=== PATIENT | female | born 1990 | race Caucasian/White ===

== ENCOUNTER 2017-02-06 00:14 | Emergency (ER) | payer OTHER ==
[~2017-02-06] VITALS: Ht 170.2 cm; Wt 63.1 kg
[2017-02-06 00:19] VITALS: Ht 170.2 cm; Wt 63.1 kg
--- NOTE | 2017-02-06 02:58 | ERD ---
ER Documentation Chief Complaint Chief Complaint left foot sweling. redness, warm to touch HPI This 26 yr female left foot red and hot, patient reports IV drug use heroin and cocaine, reports vancomycin allergy. Denies nausea, vomiting, fever, chills ROS All systems reviewed and are negative except as per history of present illness. Allergies Allergies: Coded Allergies: vancomycin (Verified Allergy, Unknown, 02/06/17) PMhx/Soc Medical and Surgical Hx: pt denies Medical Hx, pt denies Surgical Hx Hx Alcohol Use: No Hx Substance Use: No Hx Tobacco Use: No Smoking Status: Never smoker Physical Exam Vitals Vital Signs Date Time Temp Pulse Resp B/P Pulse Ox O2 Delivery O2 Flow Rate FiO2 02/06/17 00:19 98.2 120 20 129/80 100 Vitals stable, triage notes reviewed Physical Exam Const: Nourished, dirty, 26-year-old female no acute distress Head: Eyes: ENT: Neck: Cardio: Abd: Skin: Patient skin and nails are dirty, left dorsal foot and ankle, outer lateral aspect bright red, edematous, tender to palpation Back: Ext: Lower Extremity left foot: Skin: Bright red erythremic skin, soft tissue swelling, no laceration, pustule, or ulcer is visualized Compartments: Soft Motor: Full active range of motion hip/knee/ankle/foot Sensation: Intact to light touch inferior, superior and lateral surfaces surfaces.] Bones: Nontender pelvis/knee/proximal tibia/ malleoli/foot Joints: No effusion or laxity Pulses/Perfusion: 2+ DP, Capillary refill < 2 seconds Neur: Awake and alert Psych: Normal Mood and Affect Result Diagram: 02/06/17 0330 02/06/17 0330 Results 24 hrs Laboratory Tests Test 02/06/17 03:30 White Blood Count 10.010^3/ul Red Blood Count 4.3110^6/ul Hemoglobin 11.9g/dl Hematocrit 36.9% Mean Corpuscular Volume 85.6fl Mean Corpuscular Hemoglobin 27.6pg Mean Corpuscular Hemoglobin Concent 32.2g/dl Red Cell Distribution Width 12.6% Platelet Count 70378^3/UL Mean Platelet Volume 9.7fl Neutrophils % 64.2% Lymphocytes % 22.7% Monocytes % 9.0% Eosinophils % 3.3% Basophils % 0.5% Nucleated Red Blood Cells % 0.0/100WBC Neutrophils # 6.410^3/ul Lymphocytes # 2.310^3/ul Monocytes # 0.910^3/ul Eosinophils # 0.310^3/ul Basophils # 0.110^3/ul Nucleated Red Blood Cells # 0.010^3/ul Urine Color JOSH Urine Clarity CLOUDY Urine pH 5.0 Urine Specific [place] 1.031 Urine Ketones TRACEmg/dL Urine Nitrite NEGATIVEmg/dL Urine Bilirubin NEGATIVEmg/dL Urine Urobilinogen 1+mg/dL Urine Leukocyte Esterase 1+Jennifer/ul Urine Microscopic RBC 3/HPF Urine Microscopic WBC 12/HPF Urine Squamous Epithelial Cells FEW/HPF Urine Calcium Oxalate Crystals MANY/HPF Urine Bacteria FEW/HPF Urine Mucus MANY/HPF Urine Hemoglobin NEGATIVEmg/dL Urine Glucose NEGATIVEmg/dL Urine Total Protein 1+mg/dl Urine Test Pending Sodium Level 144mmol/L Potassium Level 4.3mmol/L Chloride Level 101mmol/L Carbon Dioxide Level 28mmol/L Anion Gap 19 Blood Urea Nitrogen 10mg/dl Creatinine 0.65mg/dl Glucose Level 91mg/dl Calcium Level 9.6mg/dl Total Bilirubin 0.3mg/dl Direct Bilirubin 0.00mg/dl Indirect Bilirubin 0.3mg/dl Aspartate Amino Transf (AST/SGOT) 19IU/L Alanine Aminotransferase (ALT/SGPT) 32IU/L Alkaline Phosphatase 132IU/L Total Protein 8.3g/dl Albumin 4.8g/dl Globulin 3.50g/dl Albumin/Globulin Ratio 1.37 Current Medications Medications (Trade) Dose Ordered Sig/Dipti Route PRN Reason Start Time Stop Time Status Last Admin Dose Admin Sodium Chloride 1,000 ml @ 1,000 mls/hr Q1H ONCE IV 02/06/17 03:00 02/06/17 03:59 DC 02/06/17 03:34 Clindamycin HCl/ Dextrose (Cleocin 900 Mg/ D5W (Pmx)) 50 ml @ 50 mls/hr ONCE IVPB 02/06/17 04:00 02/06/17 04:59 02/06/17 04:21 Acetaminophen (Tylenol Tab) 650 mg ONCE ONCE PO 02/06/17 04:00 02/06/17 04:01 DC 02/06/17 04:21 Interpretation text CBC shows no evidence of hemorrhage or infection Chemistry shows no evidence of significant electrolyte abnormalities or renal insufficiency Liver function tests shows no evidence of acute biliary or hepatic dysfunction Urinalysis positive for leukocytosis, negative for nitrates and microscopic hematuria. . Procedures/MDM Opiate dependence 26-year-old female presents to the emergency department for evaluation of left lower extremity erythema, and edema, patient reports pain with ambulating, states that she injects drugs into her arms not her lower extremities, nausea, vomiting, fever, or chills. Emergency room course includes history and physical low suspicion for DVT. Patient's physical exam findings are consistent with a cellulitis, routine labs negative for evidence of acute infection or blood loss, electrolyte imbalance, hepatitis, urinalysis positive for leukocytes suggestive of a urinary tract infection plan to treat patient with a liter normal saline, patient has vancomycin allergy pharmacy consulted, okay to use clindamycin 900 mg intravenously, patient will be discharged home with clindamycin 300 mg 4 times daily 10 days for cellulitis. Patient is stable with no new complaints during ER course, clinically there is no current evidence to suggest meningitis, sepsis, necrotizing fasciitis, compartment syndrome, osteomyelitis or any other emergent condition appearing to require further evaluation or hospitalization. I feel the patient is stable for discharge at this time. I have discussed results, examination findings, the treatment plan with the patient and family present prior to discharge. Indications for emergent reevaluation, side effects of medication were also discussed. All questions were answered. Patient verbalizes understanding and agrees with plan of care. Departure Diagnosis: Primary Impression: Cellulitis Site of cellulitis: extremity Site of cellulitis of extremity: lower extremity Laterality: left Qualified Code: L03.116 - Cellulitis of left lower extremity Additional Impression: Opiate addiction Substance use status: uncomplicated Qualified Code: F11.20 - Uncomplicated opioid dependence Condition: Good Patient Instructions: Cellulitis, Opiate Abuse Additional Instructions: Thank you for for coming to [facility] for your care today. Please ask your nurse or provider if you have questions about your care today and do not leave until all your questions have been answered. Please use any medications given as directed and follow-up with your doctor (or the doctor you were referred to) in the next 2-3 days. If you do not have a primary care doctor you may follow up at the [facility] (listed below). You may also use motrin and tylenol as needed for fever and/or pain unless instructed otherwise by your provider or nurse. Indications for more urgent follow-up have been discussed, but you may return to the Emergency Department at ANY time for any worrisome or worsening symptoms. If you have abdominal pain, please know that no test or exam you received is perfect and you should follow up within 8 hours for continued pain. If you had any imaging studies today, such as an X-Ray or CT Scan, these studies will be reviewed later by a radiologist. You will be called if there are important findings that were not identified today, so make sure the contact information you provided at registration is correct. If you received any narcotic pain control medicine today, such as Vicodin, Morphine or Dilaudid, your coordination and judgment may be affected for a number of hours. Please do not drive or operate heavy machinery, and you may want someone to assist you at home. If you were given a prescription for narcotic medication, be aware that it is very addictive- use sparingly and only if necessary. FOREIGN HAIRSTON Feb 06, 2017 02:58
[2017-02-06] MEDS ORDERED: SOD CHLORIDE 0.9% 1,000 ML IV ONE (03:00)
[2017-02-06] MEDS ORDERED: ACETAMINOPHEN 325 MG TAB PO ONE (04:00)
[2017-02-06] MEDS ORDERED: CLINDAMYCIN 900 MG/D5W (PMX) 50 ML IVPB SCH (04:00)
[2017-02-06] MEDS ORDERED: CLIN-73 PO (05:02)
[2017-02-06 05:15] VITALS: BP 118/74; PULSE 71; RESP 18; TEMP 98.4
== END 2017-02-06 05:15 | disposition home or self-care (01) ==
LOC: FTE 00:14
DX: L03.116 Cellulitis of left lower limb (principal); F11.20 Opioid dependence, uncomplicated
CPT/HCPCS: 80053; 81001; 84703; 85025; 96374; J7030; Z7502; Z7610

== ENCOUNTER 2017-11-30 12:49 | Emergency (ER) | END 2017-11-30 15:38 | disposition home or self-care (01) ==

== ENCOUNTER 2018-05-17 02:22 | Inpatient (IN) | payer OTHER ==
[~2018-05-17] VITALS: Ht 170.2 cm; Wt 66.1 kg
[~2018-05-17 02:22] MED LIST: CLIN300C10 PO; NPH10OT BOTH EARS
[2018-05-17 04:03] VITALS: Ht 170.2 cm; Wt 66.1 kg
[2018-05-17] MEDS ORDERED: DOCUSATE SODIUM 100 MG CAP PO PRN (04:30)
[2018-05-17] MEDS ORDERED: HYDROCODONE/APAP (5/325) TAB PO PRN (04:30)
[2018-05-17] MEDS ORDERED: ACETAMINOPHEN 325 MG TAB PO PRN (04:30)
[2018-05-17] MEDS ORDERED: ONDANSETRON 4 MG INJ IV PRN (04:30)
[2018-05-17] MEDS ORDERED: VANCOMYCIN IV PER PHARMACY XX SCH (04:30)
[2018-05-17] MEDS ORDERED: BISACODYL (EC) 5 MG TAB PO PRN (04:30)
[2018-05-17] MEDS ORDERED: NACL 0.9% 3 ML SYG IV SCH (04:30)
[2018-05-17] MEDS: CLINDAMYCIN 900 MG/D5W (PMX) 50 ML IVPB SCH ×3 (04:46→22:13)
--- NOTE | 2018-05-17 07:01 | NUR ---
Pt arrived this morning to the unit from [facility]. Pt states she has been having these blisters/abscess on her left arm that have not been healing properly. Her arm looks slightly swollen and red. At [place], MD did an incision on her arm, and it was drained. Incision was packed with Idoform strips; will ask MD if okay to continue with same packing. Belongings checked. No belongings missing. Antibiotics given. Pt is alert and oriented x4 and she has been ambulating to the restroom. Will continue monitoring pt.
[2018-05-17 08:00] VITALS: BP 128/59; PULSE 66; RESP 20
--- NOTE | 2018-05-17 10:16 | HP ---
Date/Time of Note Date/Time of Note DATE: 05/17/18 TIME: 10:08 Assessment/Plan VTE Prophylaxis Risk score (from Nsg)>0 risk: 0 SCD applied (from Nsg): No SCD contraindicated: low risk/ambulating Pharmacological prophylaxis: heparin Lines/Catheters IV Catheter Type (from Nrsg): Saline Lock Urinary Cath still in place: No Assessment/Plan Problems: (1) Abscess of left upper extremity Status: Acute Comment: Based on pictures that were sent over she has a wick in there so I do not believe that this spontaneously drained was actually intervened with directly. We will have to have wound care involved and continue with the IV clindamycin. In addition given the patient's history this started in the face went to the chest wall and then to the arm even though I do not hear anything on listening to her heart and get a check an echocardiogram. She has some medical knowledge and states that she has never had an echocardiogram before and does not have endocarditis. She is that term specifically. We are dealing with a positive information we only received limited information from our colleagues at [facility]. I am going to try and get the information from the admission when she signed out AMA as I suspect there may be more data for us to use there (2) Cellulitis of chest wall Status: Acute Comment: Clindamycin (3) Anemia Status: Chronic Comment: Do basic evaluation Qualifiers: Anemia type: unspecified type Qualified Codes: D64.9 - Anemia, unspecified (4) Intravenous drug abuse Status: Chronic Comment: Patient denies this. I am going to have social worker psychiatric see her anyway, but I am also running a drug screen on her because if she has used in the last 3 days it will show up. I have a sensation although I cannot prove it yet that she actually is actively using and simply in denial (5) Heroin dependence Comment: To be determined (6) Cocaine dependence Comment: To be determined Result Diagram: 05/17/18 0707 05/17/18 0707 Results 24hrs Laboratory Tests Test 05/17/18 07:07 White Blood Count 7.2 # Red Blood Count 3.70 L Hemoglobin 9.8 L Hematocrit 31.4 L Mean Corpuscular Volume 84.9 Mean Corpuscular Hemoglobin 26.5 L Mean Corpuscular Hemoglobin Concent 31.2 L Red Cell Distribution Width 13.2 Platelet Count 401 Mean Platelet Volume 9.1 Immature Granulocytes % 0.100 Neutrophils % 47.7 Lymphocytes % 37.2 Monocytes % 8.4 Eosinophils % 5.8 Basophils % 0.8 Nucleated Red Blood Cells % 0.0 Immature Granulocytes # 0.010 Neutrophils # 3.5 Lymphocytes # 2.7 Monocytes # 0.6 Eosinophils # 0.4 Basophils # 0.1 Nucleated Red Blood Cells # 0.0 Erythrocyte Sedimentation Rate 54 H Sodium Level 143 Potassium Level 3.6 Chloride Level 103 Carbon Dioxide Level 30 Anion Gap 10 Blood Urea Nitrogen 7 Creatinine 0.63 Est Glomerular Filtrat Rate mL/min > 60 Glucose Level 121 Lactic Acid Level 1.3 Calcium Level 9.1 Total Bilirubin 0.0 L Direct Bilirubin 0.00 Indirect Bilirubin 0.0 Aspartate Amino Transf (AST/SGOT) 22 Alanine Aminotransferase (ALT/SGPT) 17 Alkaline Phosphatase 84 Total Protein 7.2 Albumin 3.4 Globulin 3.80 H Albumin/Globulin Ratio 0.89 Triglycerides Level 140 Cholesterol Level 138 LDL Cholesterol, Calculated 91 HDL Cholesterol 19 L Cholesterol/HDL Ratio 7.2 Thyroid Stimulating Hormone (TSH) 1.930 HPI/ROS Admit Date/Time Admit Date/Time May 17, 2018 at 03:34 Hx of Present Illness 28-year-old single female admitted on transfer from [facility]. She was first admitted there on May 14, 2018 with a left arm abscess/cellulitis. As the patient describes and according to the 1 note we received from the emergency room in [facility] she had had some facial acne that she had tried to self treat. This spread and got worse and she self treated with Keflex that she got from an acquaintance. This progressed and so she presented to the emergency room in [facility]. She was admitted there given IV clindamycin due to reported allergy of turning red with vancomycin. Reportedly she had an incision and drainage of the lesion on her arm. Please note the patient states that this thing spontaneously drained on its own. Notes from our hospital from prior visits to our emergency room and also from [place] indicate history of IV drug abuse which the patient flatly denies at this time. The patient signed out AMA from [facility] on May 15, 2018 to attend to some personal business and then returned on the and was transferred directly here from the emergency room. She is here to complete her course of IV antibiotic therapy. ROS Last menstrual cycle 2 weeks ago by report . Patient reports she does not really wish to have much of a conversation at this time Constitutional: no complaints (She denies fevers chills or sweats) PMH/Family/Social Past Medical History Medical History: other (History of fracture of the ring finger in 2010; history of foot fracture in childhood; possible history of polydrug abuse; history of left foot cellulitis 2017.) Medications Current Medications IV Flush (NS 3 ml) 3 ml PER PROTOCOL IV ; Start 05/17/18 at 04:30 Ondansetron HCl (Zofran Inj) 4 mg Q6H PRN IV NAUSEA/VOMITING; Start 05/17/18 at 04:30 Acetaminophen (Tylenol Tab) 650 mg Q6H PRN PO .PAIN 1-3 OR TEMP; Start 05/17/18 at 04:30 Acetaminophen/ Hydrocodone Bitart ([place] (5/325)) 1 tab Q6H PRN PO .MOD PAIN 4- 6; Start 05/17/18 at 04:30 Docusate Sodium (Colace) 100 mg Q12H PRN PO .CONSTIPATION; Start 05/17/18 at 04:30 Bisacodyl (Dulcolax) 5 mg DAILY PRN PO .CONSTIPATION; Start 05/17/18 at 04:30 Clindamycin HCl/ Dextrose 50 ml @ 100 mls/hr Q8 IVPB Last administered on 05/17/18at 04:46; Admin Dose 100 MLS/HR; Start 05/17/18 at 05:00 Coded Allergies: vancomycin (Verified Allergy, Intermediate, 05/17/18) Patient reports she turns red when she is given vancomycin based on experience at [facility] Past Surgical History Past Surgical Hx: noncontributory Family History Significant Family History: no pertinent family hx Social History Alcohol Use: none Smoking Status: Current every day smoker Drug Use: other (Patient states that she smokes marijuana occasionally and flatly denies IV drug abuse which is noted in other records) Exam/Review of Systems Vital Signs Vitals Intake and Output 05/16/18 05/16/18 05/17/18 1515:00 23:00 07:00 IntakeIntake Total 50 ml BalanceBalance 50 ml Exam Exam female who has sheets pulled over her head and declines to be exa mined. Please note that she has some medical knowledge. Constitutional: alert, oriented Head: normocephalic, atraumatic ENMT: nl external ears & nose, nl lips & teeth, nl nasal mucosa & septum, mucosa pink and moist Neck: supple, non-tender Respiratory: clear to auscultation, normal air movement Cardiovascular: regular rate and rhythm, nl pulses, other (Do not appreciate any murmurs) Gastrointestinal: soft, nl liver, spleen, non-tender Extremities: other (Left upper extremity bandaged patient declined to allow me to evaluate) ARTURO HARTMAN MD May 17, 2018 10:16
--- NOTE | 2018-05-17 10:47 | NUR ---
CM NOTES: MET WITH THE PT AT THE BEDSIDE. PT WAS PULLING HER BLANKET TO HER FACE WHILE THIS CM ATTEMPTED TO SPEAK TO HER. WHEN ASKED HER ABOUT PCP, PT DOES NOT KNOW HER PCP. DUE TO WEEKEND, NADIA ROBERT CM WILL NOT KNOW WHO IS THE ASSIGNED PCP FOR THE PT UNTIL SATURDAY. CALIN WAS INFORMED ABOUT IV DRUG ABUSE AND SHE WILL FOLLOW UP WITH THE PT REGARDING HER IV DRUG USE. A CM WILL FOLLOW UP. MARÍA LEONE LEAD CM [id number]
--- NOTE | 2018-05-17 11:57 | NUR ---
SS Note: Consult pt is a 28YO female admitted to [facility] on 05/17/18 from [facility] for cellulitis of right arm. Medical hx includes: abscess of left upper extremity, cellulitis of chest wall, anemia, IV drug use. PROFESSOR OF MUSICOLOGY consulted today to address concerns of IV drug use. Today, pt is A&O x 4, guarded and continually holding blanket over her head, but eventually participates in interview. Pt states she lives in apartment stated on [address] by herself. 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 Pt denies depression or anxiety, denies SI. Pt admits to being an everyday smoker, denies ETOH use. Pt denies current heroin use, IV or smoking, denies current methamphetamine abuse, IV or smoking and denies current cocaine abuse. Pt also denies hx of drug abuse. Pt states her grandmother is [place]anah [place] @ [phone] [phone] but pt denies permission to contact her at this time. Pt also provides contact info of her mother, Willa, at [phone], but stats she is out of the [place] at this time and cannot be contacted. PROFESSOR OF MUSICOLOGY reviewed medical record, collaborated with SHAWN Mckeon, met with pt at bedside. PROFESSOR OF MUSICOLOGY introduced self, role, limits to confidentiality. PROFESSOR OF MUSICOLOGY completed PSA, provided support. PROFESSOR OF MUSICOLOGY reiterated role of SW is to provide help and support, connect pt to resources if they desire them, pt again denies any need for resources or support at this time. PROFESSOR OF MUSICOLOGY to remain available as needed, pt is cleared from a social work standpoint.
[2018-05-17 14:00] VITALS: BP 127/65; PULSE 76; RESP 18
--- NOTE | 2018-05-17 16:42 | NUR ---
End of shift report Pt in stable condition: vital signs within normal range; no complaint of pain/discomfort except minor pain during wound care. Wound noted with scant amount of blood, no foul odor noted. Pt drowsy almost throughout the shift because "didn't sleep well" last night. Clean catch urine collected on my shift, labeled, sent to the lab, confirmed with lab personnel that specimen sent to [facility]. Will continue to monitor. Addendum: 05/17/18 at 1738 by GOMEZ MOLINA RN I called [facility] three times on my shift, but unable to reach anyone/leave message. Will endorse to next shift RN regarding need for follow up with Latisha .
[2018-05-17 19:36] VITALS: BP 121/61; PULSE 72; RESP 20
[2018-05-17] MEDS: HEPARIN 5,000 UNIT/1 ML VIAL SC SCH (21:00)
[2018-05-18 01:54] VITALS: BP 119/58; PULSE 75; RESP 20
[2018-05-18] MEDS: CLINDAMYCIN 900 MG/D5W (PMX) 50 ML IVPB SCH ×3 (06:02→21:44)
--- NOTE | 2018-05-18 06:38 | NUR ---
EOSS: PATIENT STABLE DURING SHIFT, DENIES PAIN, NO FEVER. ON IV ATB CLINDAMYCIN FOR LEFT ARM CELLULITIS. PATIENT AMBULATORY, STEADY, NO AD NEEDED. PER MD, DOCUMENTS AT [facility] NEEDED TO BE SENT, REQUISITION SIGNED BY PATIENT. NEEDED [facility] FAX NUMBER TO FAX THE REQUEST. WILL ENDORSE TO AM RN. NEEDS MET & ATTENDED, WILL CONTINUE WITH POC.
[2018-05-18 08:04] VITALS: BP 120/73; PULSE 72; RESP 18
[2018-05-18] MEDS: HEPARIN 5,000 UNIT/1 ML VIAL SC SCH ×2 (09:00→20:13)
--- NOTE | 2018-05-18 12:32 | PN ---
Date/Time of Note Date/Time of Note DATE: 05/18/18 TIME: 12:29 Assessment/Plan VTE Prophylaxis Risk score (from Ns)>0 risk: 0 SCD applied (from Ns): No SCD contraindicated: low risk/ambulating Pharmacological prophylaxis: heparin Lines/Catheters IV Catheter Type (from Nrs): Saline Lock Urinary Cath still in place: No Assessment/Plan Problems: (1) Abscess of left upper extremity Status: Acute Comment: The request for the records from [facility] was only sent this morning. However by another channel blood cultures from [facility] are negative and the wound culture grew staph aureus and strep pyogenes group a as of May 14, 2018 obtained at 2030 hrs. Patient still has some degree of limited range of motion and since this was not formally I&D but was allowed to self drain at [facility] (information independently confirmed): Repeat the imaging study of the arm to make sure there is not any other fluid collections or abscess. (2) Fe deficiency anemia Status: Chronic Comment: To receive IV iron when the pharmacy gets to it Qualifiers: Iron deficiency anemia type: unspecified iron deficiency Qualified Codes: D50.9 - Iron deficiency anemia, unspecified Result Diagram: 05/18/18 1041 05/18/18 1041 Results 24hrs Laboratory Tests Test 05/18/18 10:41 White Blood Count 6.8 Red Blood Count 4.07 L Hemoglobin 10.7 L Hematocrit 34.2 L Mean Corpuscular Volume 84.0 Mean Corpuscular Hemoglobin 26.3 L Mean Corpuscular Hemoglobin Concent 31.3 L Red Cell Distribution Width 13.3 Platelet Count 433 H Mean Platelet Volume 9.0 Immature Granulocytes % 0.300 Neutrophils % 52.1 Lymphocytes % 32.7 Monocytes % 8.7 Eosinophils % 5.3 Basophils % 0.9 Nucleated Red Blood Cells % 0.0 Immature Granulocytes # 0.020 Neutrophils # 3.6 Lymphocytes # 2.2 Monocytes # 0.6 Eosinophils # 0.4 Basophils # 0.1 Nucleated Red Blood Cells # 0.0 Sodium Level 141 Potassium Level 4.2 Chloride Level 105 Carbon Dioxide Level 28 Anion Gap 8 Blood Urea Nitrogen 10 Creatinine 0.58 Est Glomerular Filtrat Rate mL/min > 60 Glucose Level 93 Hemoglobin A1c 5.7 Calcium Level 9.2 Total Bilirubin 0.0 L Direct Bilirubin 0.00 Indirect Bilirubin 0.0 Aspartate Amino Transf (AST/SGOT) 25 Alanine Aminotransferase (ALT/SGPT) 18 Alkaline Phosphatase 84 Total Protein 7.4 Albumin 3.6 Globulin 3.80 H Albumin/Globulin Ratio 0.94 Subjective 24 Hr Interval Summary Free Text/Dictation Patient reports that her arm feels better. Constitutional: no complaints (Denies fevers chills or sweats) Respiratory: no complaints Cardiovascular: no complaints Gastrointestinal: no complaints Exam/Review of Systems Exam Vitals Vital Signs Date Temp Pulse Resp B/P (MAP) Pulse Ox O2 O2 Flow FiO2 Time Delivery Rate 05/18/18 97.7 72 18 120/73 97 08:04 (89) 05/17/18 Room Air 19:36 Intake and Output 05/17/18 05/17/18 05/18/18 1515:00 23:00 07:00 IntakeIntake Total 400 ml BalanceBalance 400 ml Exam Initially had all the sheets pulled over her but I did prevail upon her to allow the exam today Constitutional: alert, oriented Head: normocephalic, atraumatic Respiratory: clear to auscultation, normal air movement Cardiovascular: regular rate and rhythm, nl pulses Gastrointestinal: soft, nl liver, spleen, non-tender Results Results 24hrs Laboratory Tests Test 05/18/18 10:41 White Blood Count 6.8 Red Blood Count 4.07 L Hemoglobin 10.7 L Hematocrit 34.2 L Mean Corpuscular Volume 84.0 Mean Corpuscular Hemoglobin 26.3 L Mean Corpuscular Hemoglobin Concent 31.3 L Red Cell Distribution Width 13.3 Platelet Count 433 H Mean Platelet Volume 9.0 Immature Granulocytes % 0.300 Neutrophils % 52.1 Lymphocytes % 32.7 Monocytes % 8.7 Eosinophils % 5.3 Basophils % 0.9 Nucleated Red Blood Cells % 0.0 Immature Granulocytes # 0.020 Neutrophils # 3.6 Lymphocytes # 2.2 Monocytes # 0.6 Eosinophils # 0.4 Basophils # 0.1 Nucleated Red Blood Cells # 0.0 Sodium Level 141 Potassium Level 4.2 Chloride Level 105 Carbon Dioxide Level 28 Anion Gap 8 Blood Urea Nitrogen 10 Creatinine 0.58 Est Glomerular Filtrat Rate mL/min > 60 Glucose Level 93 Hemoglobin A1c 5.7 Calcium Level 9.2 Total Bilirubin 0.0 L Direct Bilirubin 0.00 Indirect Bilirubin 0.0 Aspartate Amino Transf (AST/SGOT) 25 Alanine Aminotransferase (ALT/SGPT) 18 Alkaline Phosphatase 84 Total Protein 7.4 Albumin 3.6 Globulin 3.80 H Albumin/Globulin Ratio 0.94 Medications Medication Current Medications IV Flush (NS 3 ml) 3 ml PER PROTOCOL IV ; Start 05/17/18 at 04:30 Ondansetron HCl (Zofran Inj) 4 mg Q6H PRN IV NAUSEA/VOMITING; Start 05/17/18 at 04:30 Acetaminophen (Tylenol Tab) 650 mg Q6H PRN PO .PAIN 1-3 OR TEMP; Start 05/17/18 at 04:30 Acetaminophen/ Hydrocodone Bitart ([place] (5/325)) 1 tab Q6H PRN PO .MOD PAIN 4- 6; Start 05/17/18 at 04:30 Docusate Sodium (Colace) 100 mg Q12H PRN PO .CONSTIPATION; Start 05/17/18 at 04:30 Bisacodyl (Dulcolax) 5 mg DAILY PRN PO .CONSTIPATION; Start 05/17/18 at 04:30 Clindamycin HCl/ Dextrose 50 ml @ 100 mls/hr Q8 IVPB Last administered on 05/18/18at 06:02; Admin Dose 100 MLS/HR; Start 05/17/18 at 05:00 Heparin Sodium (Porcine) (Heparin (5000 Units/1ml)) 5,000 unit BID SC ; Start 05/17/18 at 21:00 Ferric Sodium Gluconate Complex 125 mg/Sodium Chloride 100 ml @ 100 mls/hr DAILY@1300 IVPB ; Start 05/18/18 at 17:00; Stop 05/20/18 at 13:59 ARTURO HARTMAN MD May 18, 2018 12:32
[2018-05-18 15:11] VITALS: BP 127/59; PULSE 75; RESP 18
[2018-05-18] MEDS: SOD FERRIC GLUC COMPLX 125 MG in SOD CHLORIDE 0.9% 100 ML IVPB SCH (17:35)
--- NOTE | 2018-05-18 18:43 | NUR ---
EOSS: A/O x 4; VSS; no acute distress. Denies pain. All due meds given and needs attended to. Wound consult pending; dressing intact and pt. requested to wait to have dressing murrieta done. IV ABX given and first bag of iron given. Hourly rounding done, call light within reach, encouraged to call for assistance. Will continue to monitor and endorse care to oncoming nurse.
[2018-05-18 20:01] VITALS: BP 109/55; PULSE 75; RESP 18
[2018-05-19] MEDS: CLINDAMYCIN 900 MG/D5W (PMX) 50 ML IVPB SCH ×3 (05:12→21:07)
--- NOTE | 2018-05-19 05:30 | NUR ---
VSS, AFEBRILE, INDEPENDENT WITH BED MOBILITY AND BR. NO COMPLAINTS VERBALIZED. DENIES PAIN. ABX FOR CELLULITIS CONTINUE WITH NO SS ADVERSE RXN NOTED. AT THIS TIME PT RESTING WITH EYES CLOSED NO SS DISCOMFORT NOTED. WILL CONTINUE POC.
[2018-05-19] MEDS: HEPARIN 5,000 UNIT/1 ML VIAL SC SCH ×2 (08:08→21:00)
[2018-05-19 08:33] VITALS: BP 118/58; PULSE 84; RESP 18
--- NOTE | 2018-05-19 10:57 | NUR ---
WOUND CONSULT FOR LEFT ARM CELLULITIS: 28 year old female admitted with cellulitis per record. Patient transferred from [facility] for cellulitis of right arm. History of abscess of left upper extremity, cellulitis of chest wall, anemia, IV drug use per medical record. Patient awake, alert, oriented. She was holding the blanket over her head during wound assessment. WBC 6.8. H&H 10.7/34.2. Plt 433. Hemoglobin A1C5.7. Albumin 3.6. ASSESSMENT: - Left arm multiple scabs area. There are two open wounds to left upper extremity. Each measured 0.4cmx0.4cmx0.2cm. Full thickness wound with pink wound bed. Periwound indurated with mild redness. Small sequeira drainage. No odor. Patient on IV antibiotic. Pending MRI today for left upper extremity. RECOMMENDATIONS: - Left upper extremity wounds: Cleanse with normal saline. Apply Silvasorb gel to wound bed. Then, cover with gauze and wrap with Roll gauze or Kerlix. Change daily. Assessed patient with SHAWN Bonner. Discussed plan of care with RN. RN to obtain wound care recommendations from . CHRISTOPHER LynneN RN CWOCN
--- NOTE | 2018-05-19 11:20 | PN ---
Date/Time of Note Date/Time of Note DATE: 05/19/18 TIME: 11:18 Assessment/Plan VTE Prophylaxis Risk score (from Nsg)>0 risk: 0 Pharmacological prophylaxis: heparin Lines/Catheters IV Catheter Type (from Nrsg): Saline Lock Urinary Cath still in place: No Assessment/Plan Hospital Course 1. Abscess of left upper extremity Blood cultures from [facility] are negative and the wound culture grew staph aureus and strep pyogenes group a as of May 14, 2018 Patient still has some degree of limited range of motion and since this was not formally I&D but was allowed to self drain at [facility] (information independently confirmed): Repeat the imaging study of the arm to make sure there is not any other fluid collections or abscess Continue wound care 2. Fe deficiency anemia IV iron Prophylaxis: Heparin Result Diagram: 05/18/18 1041 05/18/18 1041 Subjective 24 Hr Interval Summary Constitutional: no complaints Exam/Review of Systems Exam Vitals Vital Signs Date Temp Pulse Resp B/P (MAP) Pulse Ox O2 O2 Flow FiO2 Time Delivery Rate 05/19/18 98.1 84 18 118/58 97 08:33 (78) 05/17/18 Room Air 19:36 Intake and Output 05/18/18 05/18/18 05/19/18 1515:00 23:00 07:00 IntakeIntake Total 100 ml 1230 ml 50 ml BalanceBalance 100 ml 1230 ml 50 ml Constitutional: alert, oriented Respiratory: clear to auscultation Cardiovascular: regular rate and rhythm Gastrointestinal: soft; No distended Musculoskeletal: nl extremities to inspection Medications Medication Current Medications IV Flush (NS 3 ml) 3 ml PER PROTOCOL IV ; Start 05/17/18 at 04:30 Ondansetron HCl (Zofran Inj) 4 mg Q6H PRN IV NAUSEA/VOMITING; Start 05/17/18 at 04:30 Acetaminophen (Tylenol Tab) 650 mg Q6H PRN PO .PAIN 1-3 OR TEMP; Start 05/17/18 at 04:30 Acetaminophen/ Hydrocodone Bitart ([place] (5/325)) 1 tab Q6H PRN PO .MOD PAIN 4- 6; Start 05/17/18 at 04:30 Docusate Sodium (Colace) 100 mg Q12H PRN PO .CONSTIPATION; Start 05/17/18 at 04:30 Bisacodyl (Dulcolax) 5 mg DAILY PRN PO .CONSTIPATION; Start 05/17/18 at 04:30 Clindamycin HCl/ Dextrose 50 ml @ 100 mls/hr Q8 IVPB Last administered on 05/19/18at 05:12; Admin Dose 100 MLS/HR; Start 05/17/18 at 05:00 Heparin Sodium (Porcine) (Heparin (5000 Units/1ml)) 5,000 unit BID SC ; Start 05/17/18 at 21:00 Ferric Sodium Gluconate Complex 125 mg/Sodium Chloride 100 ml @ 100 mls/hr DAILY@1300 IVPB Last administered on 05/18/18at 17:35; Admin Dose 100 MLS/HR; Start 05/18/18 at 17:00; Stop 05/20/18 at 13:59 ANTONIO DANGELO May 19, 2018 11:20
[2018-05-19] MEDS: SOD FERRIC GLUC COMPLX 125 MG in SOD CHLORIDE 0.9% 100 ML IVPB SCH (12:22)
--- NOTE | 2018-05-19 13:50 | RADRPT ---
Echocardiogram Report Patient Name: NIC LEONARDPatient ID: [id number] : 1990 (28y 3m)Study Date: 05/19/2018 11:12:52 AM Gender: FAccession #: [id number] Tech: Noel [facility] Location: [address] Ref.Physician: ARTURO HARTMAN Height(Cm): BSA: Weight(Kg): Quality: AdequateAccount #: Procedures: Echocardiographic Report: Transthoracic echocardiogram with complete 2D, M-Mode, and doppler examination. Indications: Evaluate valvular disease. Measurements: 2D/M Mode Doppler Measurement Value Normal Range Measurement Value Normal Range LVIDd 2D 4.5 [ 3.8 - 5.2 ] cm LVOT Peak Jose L 0.9 [ 70.0 - 110.0 ] cm/sec LVIDs 2D 2.9 [ 2.2 - 3.5 ] cm LVOT Peak PG 3.0 [ 2.0 - 6.0 ] mmHg LVPWd 2D 0.8 [ 0.6 - 0.9 ] cm MV E Peak Jose L 1.0 [ 60.0 - 130.0 ] cm/sec IVSd 2D 0.8 [ 0.6 - 0.9 ] cm MV A Peak Jose L 0.7 [ 100.0 - 120.0 ] cm/sec IVS/LVPW 2D 1.0 ratio MV E/A 1.4 [ 0.8 - 1.5 ] ratio AoR Diam 2D 2.4 [ 2.3 - 3.1 ] cm MV Decel Time 218 [ 104 - 258 ] msec LA/Ao 2D 1 ratio Lat E` Jose L 0.3 [ 10.0 - 15.0 ] cm/sec LA Dimen 2D 2.8 [ 2.7 - 3.8 ] cm Med E` Jose L 0.1 cm/sec MV E/A 1.4 [ 0.8 - 1.5 ] ratio TR Peak Jose L 2.8 [ 100.0 - 280.0 ] cm/sec TR Peak PG 31.0 mmHg Findings: Left Ventricle: Normal left ventricular systolic function. Normal left ventricular cavity size. Normal left ventricular wall thickness. Ejection fraction is visually estimated at 65 %. Right Ventricle: Normal right ventricular size. Normal right ventricular systolic function. Left Atrium: The left atrium is normal in size. Right Atrium: The right atrium is normal in size. Mitral Valve: Normal appearance and function of the mitral valve with trace physiologic regurgitation. Aortic Valve: Normal appearance of the aortic valve. No significant aortic stenosis or insufficiency. Tricuspid Valve: Normal appearance and function of the tricuspid valve with trace physiologic regurgitation. Estimated peak PA systolic pressure 31 mmHg. Pulmonic Valve: Pulmonic valve not well visualized. There is trace pulmonic regurgitation. Pericardium: Normal pericardium with no significant pericardial effusion. Aorta: Normal aortic root. IVC: Normal size and normal respiratory collapse consistent with normal right atrial pressure. Conclusions: Normal left ventricular systolic function. Normal left ventricular cavity size. Normal left ventricular wall thickness. Ejection fraction is visually estimated at 65 %. Normal right ventricular size. Normal right ventricular systolic function. The left atrium is normal in size. The right atrium is normal in size. No significant valvular stenosis or regurgitation seen. Normal pericardium with no significant pericardial effusion. Electronically Signed By: Glen Tom 2018-05-19 13:50:23 PST
--- NOTE | 2018-05-19 15:30 | NUR ---
Pt. not in room for 10 minutes; at this time brought to room by unit control worker. secretary receptionist stated the 2E called and found pt. and sent her back up to floor. Pt stated she got lost and was looking for vending machine. Pt. was reminded that she is not to leave floor and that she must call for assistance if she would like to walk around unit. Pt. verbalized understanding and apologized. VSS upon arrival and no acute change in status noted upon assessment. jawbone puller, nurse retirement village manager, and MD aware.
[2018-05-19 15:34] VITALS: BP 122/63; PULSE 99; RESP 17
[2018-05-19 16:14] VITALS: PULSE 87
--- NOTE | 2018-05-19 19:27 | NUR ---
EOSS: A/O x 4; VSS; no acute distress. Denies pain. All due meds given and needs attended to. Wound consult done and orders carried out. IV ABX given and second bag of iron given. SINGH midline inserted today. Hourly rounding done, call light within reach, encouraged to call for assistance. Will continue to monitor and endorse care to oncoming nurse. Addendum: 05/19/18 at 1933 by MARY GREENE RN Daily dressing change endorsed to next RN
[2018-05-19 19:59] VITALS: BP 118/56; PULSE 93; RESP 20
--- NOTE | 2018-05-19 22:00 | NUR ---
Pt went down to get MRI of left arm at 05/19/18 @ 2200. Pt taken down via wheelchair and accompanied by FISHING CAPTAIN. Pt was stable and in no apparent distress. Pt stated no pain before leaving. Per FISHING CAPTAIN, MRI was unable to be completed d/t pt inability to keep arm still in a certain position for MRI to be taken. Pt stated positional arm pain and discomfort during procedure. Addendum: 05/20/18 at 0429 by KELI FLETCHER RN MRI was taken but were unable to obtain a clear picture. Will endorse to next shift to notify .
[2018-05-20 02:22] VITALS: BP 111/53; PULSE 72; RESP 18
[2018-05-20] MEDS: CLINDAMYCIN 900 MG/D5W (PMX) 50 ML IVPB SCH ×2 (05:32→14:26)
--- NOTE | 2018-05-20 05:42 | NUR ---
EOSS No acute changes in patient's condition. VSS. A&Ox4. IV meds given. Hourly rounding done. Pt taken down to MRI. MRI picture unclear. May need to repeat. Will endorse to next shift. Pt refused dressing change. Bed left in lowest position with bed alarm on. Call light left within reach.
--- NOTE | 2018-05-20 05:44 | NUR ---
Pt refused heparin SC. Educated on importance of med. Pt verbalized understanding.
[2018-05-20 08:00] VITALS: BP 116/58; PULSE 71; RESP 18
[2018-05-20] MEDS: HEPARIN 5,000 UNIT/1 ML VIAL SC SCH (08:44)
[2018-05-20] MEDS: SOD FERRIC GLUC COMPLX 125 MG in SOD CHLORIDE 0.9% 100 ML IVPB SCH (12:17)
--- NOTE | 2018-05-20 14:04 | PN ---
Date/Time of Note Date/Time of Note DATE: 05/20/18 TIME: 14:02 Assessment/Plan VTE Prophylaxis Risk score (from Nsg)>0 risk: 1 Pharmacological prophylaxis: NA/contraindicated Pharm contraindication: low risk/ambulating Lines/Catheters IV Catheter Type (from Nrsg): Mid Line Urinary Cath still in place: No Assessment/Plan Hospital Course 1. Abscess of left upper extremity with cellulitis Blood cultures from [facility] are negative and the wound culture grew staph aureus and strep pyogenes group a as of May 14, 2018 Patient still has some degree of limited range of motion and since this was not formally I&D but was allowed to self drain at [facility] (information i ndependently confirmed): Repeat the imaging study of the arm to make sure there is not any other fluid collections or abscess Continue wound care Continue clindamycin and have added Rocephin ID consultation obtained Patient unable to tolerate MRI due to pain in the arm 2. Fe deficiency anemia IV iron Prophylaxis: Heparin Result Diagram: 05/18/18 1041 05/18/18 1041 Subjective 24 Hr Interval Summary Constitutional: no complaints Exam/Review of Systems Exam Vitals Vital Signs Date Temp Pulse Resp B/P (MAP) Pulse Ox O2 O2 Flow FiO2 Time Delivery Rate 05/20/18 98.1 71 18 116/58 99 08:00 (77) 05/17/18 Room Air 19:36 Intake and Output 05/19/18 05/19/18 05/20/18 1515:00 23:00 07:00 IntakeIntake Total 700 ml 1360 ml BalanceBalance 700 ml 1360 ml Constitutional: alert, oriented Respiratory: clear to auscultation Cardiovascular: regular rate and rhythm, rub Gastrointestinal: soft; No distended Musculoskeletal: No nl extremities to inspection Medications Medication Current Medications IV Flush (NS 3 ml) 3 ml PER PROTOCOL IV ; Start 05/17/18 at 04:30 Ondansetron HCl (Zofran Inj) 4 mg Q6H PRN IV NAUSEA/VOMITING; Start 05/17/18 at 04:30 Acetaminophen (Tylenol Tab) 650 mg Q6H PRN PO .PAIN 1-3 OR TEMP; Start 05/17/18 at 04:30 Acetaminophen/ Hydrocodone Bitart ([place] (5/325)) 1 tab Q6H PRN PO .MOD PAIN 4- 6; Start 05/17/18 at 04:30 Docusate Sodium (Colace) 100 mg Q12H PRN PO .CONSTIPATION; Start 05/17/18 at 04:30 Bisacodyl (Dulcolax) 5 mg DAILY PRN PO .CONSTIPATION; Start 05/17/18 at 04:30 Clindamycin HCl/ Dextrose 50 ml @ 100 mls/hr Q8 IVPB Last administered on 05/20/18at 05:32; Admin Dose 100 MLS/HR; Start 05/17/18 at 05:00 Heparin Sodium (Porcine) (Heparin (5000 Units/1ml)) 5,000 unit BID SC ; Start 05/17/18 at 21:00 ANTONIO DANGELO May 20, 2018 14:04
[2018-05-20] MEDS ORDERED: CEFTRIAXONE 1 GM/50 ML (PMX) 50 ML IVPB SCH (14:30)
--- NOTE | 2018-05-20 14:54 | NUR ---
ERIC Notes: PCP: Moise Starr [facility] PN: [phone] - T/c made to Yarely REYES of [facility] PN: [phone] ext [phone] to discuss patient d/c needs. Patient needs possible HH agency and needs to see PCP post d/c. As per Yarely call her for any d/c needs and can fax orders for d/c to [phone].
--- NOTE | 2018-05-20 16:31 | NUR ---
AMA Pt stated she needed to leave AMA because she "need to handle some things". notified. Charge nurse Macie and tire care manager Preston notified as well. Risks and benefits were explained to the pt several times. Pt verbalized understanding. Urine collected before she left for suspicion of drug use. IV ATB stopped. Midline removed as well as name band.
--- NOTE | 2018-05-20 18:01 | CONS ---
DATE OF ADMISSION: 05/19/2018 DATE OF CONSULTATION: 05/20/2018 TYPE OF CONSULTATION: Infectious Disease. REASON FOR CONSULTATION: Antibiotic management. HISTORY OF PRESENT ILLNESS: Sushila Wallace is a 28-year-old female who was recently hospitalized in [facility] for left arm cellulitis and comes now again with abscess of left upper extremity. H er blood cultures from [facility] were negative. Wound cultures, however, grew out Staph aureus and Streptococcus pyogenes as of 05/14/2018. The patient comes in. She has some degree of limited range of motion. She was not formally I and D'd, but it was allowed to self drain at [facility] . The patient was placed on IV clindamycin. According to the patient's history, she had cellulitis of the face, one to chest then to the arm; however blood cultures as noted were negative. Echocardio gram was negative. PAST MEDICAL HISTORY: Operations as outlined. FAMILY HISTORY: Noncontributory. SOCIAL HISTORY: She is an IV drug user, though the patient denies it. She has heroin dependence and cocaine dependence. PHYSICAL EXAMINATION: GENERAL: She is a well-developed, well-nourished female who is awake, responsive, in no acute distre ss. VITAL SIGNS: Stable. She is afebrile. SKIN: Without generalized rash. HEENT: Within normal limits. NECK: Supple. LYMPH NODES: None palpable. CHEST: Decreased breath sounds at the bases. HEART: Without murmur or gallop. ABDOMEN: Soft, nontender without organosplenomegaly or masses. EXTREMITIES: She has a left arm cellulitis with abscess in the left upper extremity. RECTAL AND GENITAL: Deferred. NEUROLOGIC: No focal neurological abnormalities. An MRI was attempted but she could not tolerate it. Blood cultures here are negative. She is curren tly on clindamycin and Rocephin, SUPPOSEDLY ALLERGIC TO VANCOMYCIN. We will continue to observe and we may want to get the surgeon to evaluate and see if there is any evidence of abscess formation whic h has to be drained. I will dictate my findings to the hospitalist. Dictated By: MORGAN PORTILLO MD, JD/SAMUEL Conf#: [id number] DID#: [id number] CC: ANTONIO DANGELO MD; ABIGAIL LEMA MD;*End*
== END 2018-05-20 16:30 | disposition left against medical advice (07) | DRG 603 ==
LOC: 5EC 03:34 → INTOOBSV 03:34 → OBSVTOIN 05-19 08:52
PROVIDERS: ADMIT Family Medicine; ATTEND Internal Medicine
DX: L02.414 Cutaneous abscess of left upper limb (principal); F11.20 Opioid dependence, uncomplicated; F19.10 Other psychoactive substance abuse, uncomplicated; F17.200 Nicotine dependence, unspecified, uncomplicated; D50.9 Iron deficiency anemia, unspecified; L03.114 Cellulitis of left upper limb
CPT/HCPCS: 80053; 80061; 80307; 83036; 83540; 83605; 84443; 84703; 85025; 85651; 86592; 86803; 87040; 87081; 87340; 93306; 99217; G0378; J0696; J1644; J2916

== ENCOUNTER 2018-05-24 02:26 | Emergency (ER) | payer OTHER ==
[~2018-05-24] VITALS: Ht 170.2 cm; Wt 68.7 kg
[2018-05-24 02:52] VITALS: Ht 170.2 cm; Wt 68.7 kg
[2018-05-24] MEDS ORDERED: CLIN300C10 PO (04:23)
--- NOTE | 2018-05-24 04:28 | ERD ---
ER Documentation Chief Complaint Chief Complaint PT C/O ABSCESSES,LEFT AMA PRIOR HPI 28-year-old female presenting for left upper extremity infection. She left AMA 2 days ago from the hospital and returned per their instructions if she changed her mind. She states that she was supposed to get a few more days of an tibiotics. She states her symptoms have significantly improved since she was first admitted to the hospital at [place] than transferred here. She denies any fevers or chills. She denies any current drug use. ROS All systems reviewed and are negative except as per history of present illness. Medications Home Meds Active Scripts Clindamycin Hcl* (Clindamycin Hcl*) 300 Mg Capsule, 300 MG PO TID for 3 Days, CAP Prov:CELENA ACUÑA MD 05/24/18 Neomycin/Polymyxin/Hydrocort* (Cortisporin* Otic) 10 Ml Susp, 4 DROP BOTH EARS QID for 5 Days, #1 EA Prov:BETH MAY MD 11/30/17 Clindamycin Hcl* (Clindamycin Hcl*) 300 Mg Capsule, 300 MG PO QID for 10 Days, CAP Prov:MARIKAFOREIGN 02/06/17 Allergies Allergies: Coded Allergies: vancomycin (Verified Allergy, Intermediate, 05/17/18) Patient reports she turns red when she is given vancomycin based on experience at [facility] PMhx/Soc History of Surgery: Yes (Right 4th digit sx, 2 abortions, Hx left leg wound I&D) Anesthesia Reaction: No Hx Neurological Disorder: No Hx Respiratory Disorders: No Hx Cardiac Disorders: No Hx Psychiatric Problems: No Hx Miscellaneous Medical Probl: Yes (Hx of sinus infection) Hx Alcohol Use: No Hx Substance Use: No Hx Tobacco Use: Yes FmHx Family History: No diabetes Physical Exam Vitals Vital Signs Date Temp Pulse Resp B/P (MAP) Pulse Ox O2 O2 Flow FiO2 Time Delivery Rate 05/24/18 98.7 135 16 164/75 97 02:52 (104) Physical Exam Const: No acute distress, nontoxic Head: Atraumatic Eyes: Normal Conjunctiva ENT: Normal External Ears, Nose and Mouth. Neck: Full range of motion. No meningismus. Resp: Clear to auscultation bilaterally Cardio: Tachycardic with regular rhythm, no murmurs Abd: Soft, non tender, non distended. Normal bowel sounds Skin: See extremity exam Back: No midline or flank tenderness Ext: Healing ulcerated lesions on left upper extremity. Minimal erythema in the upper forearm, nontender to palpation. No abscess is seen. 2+ radial pulses bilaterally. No joint swelling. Full range of motion at all joints. Neur: Awake and alert Psych: Normal Mood and Affect Procedures/MDM Patient seems to be doing very well after receiving IV antibiotics. I do not feel she requires admission at this time and is stable for discharge with oral clindamycin. Her vitals were notable for tachycardia, but she is very well- appearing on exam and I do not suspect sepsis. Return precautions were given. Patient feels happy with the discharge plan. She agrees to return for any worsening symptoms or if antibiotics are not working appropriately. Departure Diagnosis: Primary Impression: Cellulitis of left upper arm Condition: Stable Patient Instructions: Cellulitis Additional Instructions: Return to the ER if you are not improving as expected or you have any worsening symptoms. CELENA ACUÑA MD May 24, 2018 04:28
== END 2018-05-24 04:55 | disposition home or self-care (01) ==
LOC: FTE 02:26
DX: L03.114 Cellulitis of left upper limb (principal); Z87.891 Personal history of nicotine dependence
CPT/HCPCS: 99283

== ENCOUNTER 2018-07-07 23:38 | Emergency (ER) | payer SELFPAY | END 2018-07-07 23:57 | disposition left against medical advice (07) | LOC: E/R 23:38 | DX: Z53.21 Procedure and treatment not carried out due to patient leaving prior to being seen by health care provider (principal) ==